=== PATIENT | female | born 1965 | race Caucasian/White ===

== ENCOUNTER 2025-01-21 21:27 | Emergency (ER) | payer OTHER, SELFPAY ==
[2025-01-21] VITALS (45 sets, daily range): BP systolic 78–117; BP diastolic 36–84; PULSE 89–180; RESP 10–26; TEMP 36.6; O2SAT 92–97; BMI 41.6
--- OUTSIDE RECORDS SUMMARY | 2025-01-21 21:30 | XMS_ITS | Clinical Summary ---
Author Organization [facility] Address [address] [place] [id number] Care Team Providers Care Watermelon Harvesting Supervisor Name Role Phone Marisela Bustamante Primary Care Provider Allergies Active Allergy Reactions Criticality Noted Date Comments Amoxicillin Rash,Edema 11/29/2007 Azithromycin Rash 09/15/2011 Rash, swollen joints Medications MULTIPLE VITAMIN ESSENTIAL ORAL TAB 1 tab daily ? 0 10/23/2003 Active CALTRATE PLUS ORAL TAB 1 tab daily ? 0 10/23/2003 Active CLARITIN 10 MG TAB take 1 tablet (10 mg) by oral route once daily 0 01/10/2008 Active famotidine (PEPCID) 20 mg tabletIndication s:Dyspepsia Take 1 Tablet (20 mg) by mouth 2 times daily. 60 Tablet 1 05/29/2021 Active Active Problems Problem Noted Date Diagnosed Date Prediabetes 12/02/2022 Hepatic steatosis 01/20/2022 Overview (01/20/2022): Abdominal ultrasound 01/20/22: Diffuse hepatic steatosis. Stable 7 millimeter hypoechoic structure left hepatic lobe Morbid exogenous obesity 07/18/2021 Liver lesion, left lobe 07/02/2021 Calculus of gallbladder with out cholecystitis without obstruction 07/02/2021 Adenomatous colon polyp 12/18/2016 Overview (03/05/2022): Colonoscopy 11/2016 polyp repeat in 5 years Colonoscopy 02/2022 3-TA, repeat in 5 years Resolved Problems Problem Noted Date Diagnosed Date Resolved Date Gall stones 09/27/2014 06/14/2018 Overview (09/27/2014): She declined further evaluation at this time. 09/27/2014 Unspecified sinusitis (chronic) 01/10/2008 01/10/2008 Pure hyperglyceridemia 04/23/200612/01 Flat foot(734) 04/23/2006 06/14/2018 fatty liver 11/18/2005 01/20/2022 Overview (11/18/2005): should discuss weight loss/lipids/check LFT's at routine physical CONTRACEPTIVE MANAGEMENT NOS 10/03/2002 04/23/2006 Obesity 08/15/1999 12/01/2018 Irregular menstrual cycle 08/15/1999 Encounters Date Type Department Care Team Description 11/14/2024 1:00 PM CDT Ancillary Procedure [facility] [address] [place] [address] 11/14/2024 Travel from Last 3 Months Immunizations Immunization Administration Dates Next Due COVID-19 vaccine (Moderna 100mcg/0.5mL) PF MDErasmo 06/28/2020,05/31/2020 Influenza, IIV3 (Age >=3 years) 01/17/2014,01/06 Influenza, IIV4 02/06/2022,,02/16/2020,2018,01/25/2018,01/28/2016 Influenza,CCIIV4 PRESERV FREE 01/29/2017 Td (Age >=7 Years) 12/01/2019,11/29/2004, 993 Tdap 08/08/2008 Zoster (Shingrix-RZV, recombinant) 10/19/2018, Family History Medical History Relation Name Comments Thyroid Disease Brother half brother Cancer Father multiple myelom a GI Disease Father polyps- benign Diabetes Maternal Grandmother Arthritis Mother ? Diabetes Mother Heart Disease Mother Lung cancer Mother Thyroid Disease Mother ? Cancer-breast Sister half sister Anesthesia Problem No Family History Blood Disease No Family History Relation Name Status Comments Brother Father Maternal Grandfather Maternal Grandmother Mother Paternal Grandfather Paternal Grandmother Sister Social History Tobacco Use Types Packs/Day Years Used Date Smoking Tobacco: Never Smokeless Tobacco: Never Tobacco Cessation:Counseling Given: Yes Alcohol Use Standard Drinks/Week Comments Yes 0 (1 standard drink = 0.6 oz pur e alcohol) rare Humiliation, Afraid, Rape, and Kick questionnair e Answer Date Recorded Within the last year, have y ou been afraid of your partner or ex-partner? No 12/01/2019 Within the last year, have y ou been humiliated or emotionally abused in other ways by your partner or ex-partner? No Within the last year, have y ou been kicked, hit, slapped, or otherwise physically hurt by your partner or ex-partner? No 12/01/2019 Within the last year, have y ou been raped or forced to have any kind of sexual activity by your partner or ex-partner? No 12/01/2019 PHQ-2 Answer Date Recorded PHQ-2 TOTAL SCORE 0 12/01/2022 [facility] - Occupational Stress Questionnaire Answer Date Recorded Do you feel stress - tense, restless, nervous, or anxious, or unable to sleep at night because your mind is troubled all the time - these days? Not at all 12/01/2019 Social Connections Answer Date Recorded Frequency of Communication with Friends and Fami ly 0 10/21/2022 Financial Resource Strain Answer Date R ecorded Difficulty of Paying Living Expenses 3 10/21/2022 Difficulty of Paying Living Expenses Not on file 10/21/2022 Food Insecurity Answer Date Recorded Worried About Running Out of Food in the Last Ye ar 1 10/21/2022 Transportation Needs Answer Date Record ed Lack of Transportation (Medical) 1 10/21/2022 Housing Stability Answer Date Recorded Unable to Pay for Housing in the Last Year 1 10/21/2022 Comments No Sex and Gender Information Value Date Recorded Sex Assigned at Not on file Legal Sex Female 5:24 AM REWORKER Gender Identity Not on file Sexual Orientation Not on file 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 file Not on file Not on bruno e Obstetrics History Para Term AB IAB SAB Ectopic Multiple Livin g Live Births 4 3 3 0 1 0 1 0 0 3 3 Date Outcome GA Total Labor Labor/2nd/3rd Weight Sex Type Anes PTL Brigitte A1 A5 Name Clin 06/18 Term F Vag Living Shaina 06/23 Term M Vag Living Abdulaziz 08/30 Term M Vag Living Jacobo Last Filed Vital Signs Vital Sign Reading Time Taken Comments Blood Pressure 138/92 12/16/2023 1:50 PM CDT tow er Pulse 108 12/16/2023 1:50 PM CDT Temperature 36.5 C (97.7 F) 10/21/2022 9:30 AM CDT Respiratory Rate 15 10/17/2020 9:36 AM CDT Oxygen Saturation 95% 12/16/2023 1:50 PM CDT Inhaled Oxygen Concentration - - Weight 117 kg (258 lb) 12/16/2023 1:50 PM CDT Height 166.4 cm (5' 5.5) 12/01/2022 2:39 PM CDT Body Mass Index 42.28 12/01/2022 2:39 PM CDT Plan of Treatment Upcoming Encounters Date Type Department Care Team (Late st Contact Info) Description 02/13/2025 3:40 PM CDT Office Visit [facility] [address] [place] [address] Jayla Armijo, [address] [place] [address] Health Maintenance Due Date Last Done Comments HIV for age 15-65 01/20/1980 Hepatitis B series for 19+ ( 1 of 3 - 19+ 3-dose series) 01/20/1984 Pneumococcal series for age 50+ (1 of 1 - PCV) 2015 BMI (ht and wt on same day) for age 18+ 12/02/2023 12/01/2022, 07/18/2021, 10/17/2020, Additional history exists Depression screening for age 12+ 12/02/2023 12/01/2022, 05/29/2021, 12/01/2019, Additional history exists Pap test for age 21-65 11/30/2024 , 12/01/2019, 06/10/2016, Additional history exists COVID-19 vaccine series ( season) 2024 03/27/2022, 03/05/2021, 06/28/2020, Additional history exists Influenza Vaccine (#1) 2024 2, 02/15/2021, 02/16/2020, Additional history exists Mammogram for age 45-75 11/14/2025 11/15/19 25, 11/11/2023, 11/05/2022, Additional history exists Colonoscopy through age 75 03/04/202703/04, 03/04/2022, 03/04/2022, Additional history exists Lipids for age 45-75 12/02/2027 12/01/2022, 12/01/2019, 06/14/2018, Additional history exists Tetanus booster 11/30/2029 12/01/2019, 07/26, 11/29/2004, Additional history exists RSV vaccine for adults or (1 - 1-dose 75+ series) 01/20/2040 Hepatitis C screening for ag e 18-79 Completed 02/27/2000 Zoster (shingles) series for age 50+ Completed 10/19/2018, 06/14/2018 Procedures Procedure Name Priority Date/Time Associated Diagnosis Comments XR MAMMO CHRISTINE BILAT SCREEN Routine 11/14/2024 1:10 PM CDT Visit for screening mammogram LIPID PANEL W REFLEX MEASURED LDL Routine 12/01/2022 3:06 PM CDT Hepatic steatosis COLONOSCOPY SCREENING Routine 03/04/2022 8:33 AM REWORKER History of colon polyps Polyp of colon, unspecified part of colon, unspecified type CANCER REGISTRY COORDINATOR THIN PREP PAP SCREEN IMAGED Routine 12/01/2019 1:32 PM CDT Pap smear for cervical cancer screening ANTI HCV Routine 02/27/2000 7:36 PM REWORKER from Last 3 Months or Most Recently Relevant to Health Maintenance Results * XR MAMMO CHRISTINE BILAT SCREEN (11/14/2024 1:10 PM CDT) Anatomical Region Laterality Modality BREASTS, Breast Left, Breast Right Bilateral Mammography Impressions 11/16/2024 11:05 AM CDT There is no radiographic evidence for malignancy. Recommend annual mammograms. MAMMOGRAM ASSESSMENT: ACR 1 Negative PATIENTS: You will also receive a letter with your examination results in an easy to read format. If you have questions about your results, please contact your referring provider. Narrative 11/16/2024 11:05 AM CDT For Patients: As a result of the Century Cures Act, medical imaging exams and procedure reports are released immediately into your electronic medical record. You may view this report before your referring provider. If you have questions, please contact your health care provider. XR MAMMO CHRISTINE BILAT SCREEN [[id number]] CLINICAL HISTORY: This is an asymptomatic 59 y.o. patient. INDICATION FOR EXAM: Mammogram Screening. TECHNIQUE: CC and MLO views were obtained. This study was evaluated with the assistance of Computer-Aided Detection. Breast Tomosynthesis was used in interpretation. COMPARISON FILM: Yes 11/11/23 [facility] 11/05/22 [employer] [facility] Medical FINDINGS: There are scattered areas of fibroglandular density. There are no dominant masses, suspicious micro calcifications or areas of architectural distortion. us Marisela Bustamante DO MAMMO Final Resul t * LIPID PANEL W REFLEX MEASURED LDL (12/01/2022 3:06 PM CDT) CHOLESTEROL,TOTAL 183 100 - 199 mg/dL 12/02/2022 1:40 AM CD[address] [facility] [employer] Comment: Cholesterol, Total Reference Ranges Desirable <200 mg/dL Borderline 200-239 mg/dL High >=240 mg/dL TRIGLYCERIDES 120 <150 mg/dL 12/02/2022 1:40 AM CD[address] [facility] HDL CHOLESTEROL 50 >40 mg/dL 1:40 AM CDT [facility] NON-HDL CHOLESTEROL 133 <145 mg/dl 12/02/2022 1:40 AM CDT [facility] CHOL/HDL RATIO 3.66 <4.50 12/02/2022 1:40 AM CDT [facility] LDL CHOLESTEROL 109 <=130 mg/dL 12/02/2022 1:40 AM CDT [facility] VLDL CHOLESTEROL 24 <=30 mg/dL 12/02/2022 1:40 AM CDT [facility] PROVIDER ORDERED STATUS RANDOM 12/02/2022 1:40 AM CDT [facility] Blood BLOOD SPECIMEN / Unknown Venipuncture / Unknown 12/01/2022 3:06 PM CDT 12/01/2022 3:06 PM CDT us Marisela Bustamante DO CHEMISTRY Final Resul t [facility] [address] [place] [address], [place] * COLONOSCOPY (03/04/2022 8:39 AM REWORKER) 03/04/2022 8:39 AM REWORKER Narrative Transcriptions Darvin Perry MD - 03/04/2022 9:42 AM CST Patient Name: Woody Brown Procedure Date: 03/04/2022 Gender: Female Date of : 1965 Admit Type: Outpatient Procedure: Colonoscopy Proceduralist: Darvin Perry MD , Shalini Garrido, RN (Nurse), Wendy Quinonez RN (Nurse) Referring MD: Marisela Bustamante Indications/Pre-Op Diagnosis: High risk colon cancer surveillance:Personal history of adenoma less than 10 mm in size, Last colonoscopy: November 2016 Medications: Fentanyl 100 micrograms IV, Midazolam 3 mgIV, The level of sedation administered wasmoderate Procedure Description: The patient had risks, benefits and alternatives explained to andgave informed consent. The patient had a stable cardiopulmonary status and judged an adequate candidate for conscious sedation. The endoscope [id number] was passed through the anus andadvanced to the cecum, identified by appendiceal orifice and ileocecal valve.The colonoscopy was performed without difficulty. The patient toleratedthe procedure well. The quality of the bowel preparation was good. The ileocecal valve, appendiceal orifice, and rectum were photographed. Complications: No immediate complications. Estimated Blood Loss & Specimen: Estimated blood loss: none. Specimen collected - Yes and sent to Laboratory Findings: The perianal and digital rectal examinations were normal. Two sessile polyps were found in the cecum. The polyps were 2 to 3 mmin size. These polyps were removed with a cold biopsy forceps. Resection and retrieval were complete. A 5 mm polyp was found in the sigmoid colon. The polyp was sessile.The polyp was removed with a hot snare. Resection and retrieval were complete. A few small-mouthed diverticula were found in the sigmoid colon. The exam was otherwise without abnormality. Impressions/Post-Op Diagnosis: - Two 2 to 3 mm polyps in the cecum, removed with a cold biopsyforceps. Resected and retrieved. - One 5 mm polyp in the sigmoid colon, removed with a hot snare. Resected and retrieved. - Diverticulosis in the sigmoid colon. - The examination was otherwise normal. Recommendation: - Patient has a contact number available for emergencies. The signsand symptoms of potential delayed complications were discussed with the patient. Return to normal activities tomorrow. Written discharge instructions were provided to the patient. - Resume previous diet. - Continue present medications. - Await pathology results. - Repeat colonoscopy is recommended. The colonoscopy date will be determined after pathology results from today's exam become available for review. Moderate Sedation: A time out was performed before the procedure. Moderate (conscious) sedation was administered by the endoscopy nurse and supervised bythe endoscopist. The following parameters were monitored: oxygensaturation, heart rate, blood pressure, EKG, CO2, respiratory rate, adequacy of pulmonary ventilation and reponse to care. Please refer to the patient's medical record flowsheets and nursing notes for moderate sedation details. Total physician intraservice time was 15 minutes. Darvin Perry MD 03/04/2022 9:42:12 AM This report has been signed electronically. Note Initiated On: 03/04/2022 8:39 AM Procedure Code(s): --- Professional --- 86811, Colonoscopy, flexible; with removalof tumor(s), polyp(s), or other lesion(s) bysnare technique 21494, 59, Colonoscopy, flexible; withbiopsy, single or multiple Diagnosis Code(s): --- Professional --- Z86.010, Personal history of colonicpolyps D12.0, Benign neoplasm of cecum D12.5, Benign neoplasm of sigmoid colon K57.30, Diverticulosis of large intestine without perforation or abscess withoutbleeding CPT copyright 2020 [employer]. All rights reserved. The codes documented in this report are preliminary and upon screen printing stencil preparer reviewmay be revised to meet current compliance requirements. Scope In: 9:19:20 AM Scope Withdrawal Time 0 hours 11 minutes 19 seconds Scope Out: 9:33:14 AM us Darvin Perry MD PROCEDURE ORD Final Res ult * CANCER REGISTRY COORDINATOR THIN PREP PAP SCREEN IMAGED (12/01/2019 1:32 PM CDT) Case Report Gynecologic Cytology Report Case: [id number] Authorizing Provider: Sasha Ziegler NP Collected: 12/01/2019 1332 Ordering Location: [facility] Received: 12/01/2019 1332 Clinic First Screen: Cyrus Mendez Specimen: CANCER REGISTRY COORDINATOR ThinPrep Vial Screening, Cervical 12/12/2019 6:59 AM CDT [facility]AL [facility]AT[facility] INTERPRETATION/ RESULT NEGATIVE FOR INTRAEPITHELIAL LESION OR MALIGNANCY (NIL) (none) 12/12/2019 6:59 AM CDT [facility]AL LAB[facility]ATORY at 0659 CDT SPECIMEN ADEQUACY Satisfactory for evaluation Endocervical component present 12/12/2019 6:59 AM CDT [facility] HPV REQUEST HPV and PAP 12/12/2019 6:59 AM CDT [facility] Date of LMP Post Normal. 12/12/2019 6:59 AM CDT [facility] Last Pap Date 06/10/16 12/12/2019 6:59 AM CDT [facility] Last Pap Result NIL 0 6:59 AM CDT [facility] Abnormal Pap or [place] Bx in last 5 years No 12/12/2019 6:59 AM CDT [facility] Menstrual Status Regular Periods 12/12/2019 6:59 AM CDT [facility] [place] Bx Done Today No 12/12/2019 6:59 AM CDT [facility] Additional Information None given 12/12/2019 6:59 AM CDT [facility] Comment: Cytology is screened at [facility] Central Laboratory - [address], [place] [address] and [facility] - [address] , [place] [address] and [facility] - [address] [place] [address] Interpreted at [facility] - [address], [place] [address] Automated Review Successful 12/12/2019 6:59 AM CDT [facility] Comment:Specimen processed s uccessfully by automated padding machine operator device, ThinPrep Imaging System, [employer] ANCILLARY TESTING CANCER REGISTRY COORDINATOR HPV Ordered, Please see separate report 12/12/2019 6:59 AM CDT [facility] Note The pap test is a screening technique, not a diagnostic procedure. It is used primarily to screen for squamous cancers and precursor lesions. Published studies have shown that it is subject to both false negative and false positive results. The pap test should not be used as the sole means to diagnose or exclude pre-malignant and malignant lesions. 12/12/2019 6:59 AM CDT [facility]-C ENTRAL LABORATORY Other (Cervical) Non-Blood / Unknown 12/01/2019 1:32 PM CDT 12/01/2019 1:32 PM CDT Sasha Ziegler NP PATHOLOGY/CYTOLOGY Final Result [facility]-C[facility]TRAL LABORATORY [address] [place] [address], * ANTI HCV (02/27/2000 7:36 PM REWORKER) ANTI HCV NON-REACTIV E NON - REACT 02/27/2000 7:36 PM REWORKER Narrative 10/05/2003 9:41 PM CDT Ordered by an unspecified provider. Other Clinical Staff SEND OUTS Final Resul t from Last 3 Months or Most Recently Relevant to Health Maintenance [place] [address] [place] [address] INDIVIDUAL AND FAMILY PLANS Advance Directives * Full Code (Latest Code Status on File) Date Activated Date Inactivated Comments 07/24/2016 9:18 AM 07/24/2016 1:53 PM * Full Code Date Activated Date Inactivated Comments 07/24/2016 12:44 AM 07/24/2016 9:18 AM * Full Code Date Activated Date Inactivated Comments 11/06/2014 11:39 AM 11/06/2014 4:40 PM * Full Code Date Activated Date Inactivated Comments 11/06/2014 2:53 AM 11/06/2014 11:39 AM Care Teams Watermelon Harvesting Supervisor Relationship Specialty Start Date End Date [place], [place] [address] [place] [address] PCP - General Family Practice 07/10/21
--- NOTE | 2025-01-21 21:49 | ED.ARRPALP ---
HPI - Arrhythmia/Palpitations General Time Seen by Provider: 21:49 Date Seen: 01/21/25 Chief Complaint: Arrhythmia/Palpitations Stated Complaint: high heartrate, nausea Time Seen by Provider: 01/21/25 21:44 Source: patient and family Mode of arrival: ambulatory Limitations: no limitations History of Present Illness HPI narrative: 60-year-old female who presents today with palpitations, nausea for about 1 hour. No chest pain, no shortness of breath. No prior history. Not anticoagulated. Related Data Home Medications ?Medication ?Instructions ?Recorded ?Confirmed lisinopril 20 mg tablet 20 mg PO DAILY blood pressure 01/21/25 01/21/25 Previous Rx's ?Medication ?Instructions ?Recorded apixaban 5 mg tablet 5 mg PO BID #60 tabs 01/21/25 metoprolol succinate 25 mg 25 mg PO DAILY #30 tabs 01/21/25 tablet,extended release 24 hr Allergies Allergy/AdvReac Type Severity Reaction Status Date / Time amoxicillin Allergy Verified 01/21/25 21:48 azithromycin (From Zithromax) Allergy Verified 01/21/25 21:48 Exam Narrative: Exam Narrative: General: Well-developed and well-nourished, no acute distress Head: Atraumatic and normocephalic Eyes: Pupils are equal reactive, extraocular motions intact, conjunctiva clear ENT: External nose and ears are normal, posterior pharynx without erythema or exudate Neck: No midline cervical tenderness, full spontaneous range of motion the neck, trachea midline, no adenopathy Heart: Heart is tachycardic and irregular Lungs: Clear to auscultation bilaterally without wheezes or crackles Abdomen: Soft, nontender, nondistended with active bowel sounds Musculoskeletal: No tenderness, deformity, or edema Neurologic: Awake, alert, and oriented x3, no gross focal neurologic deficits, cranial nerves intact as tested Psych: Mood and affect are appropriate Skin: No rashes Const: Vital Signs, click to edit/add: Vital Signs - 24 hr 01/21/25 21:41 01/21/25 21:43 01/21/25 21:43 Temperature 98 F Pulse Rate 157 H 171 H Pulse Rate [Pulse Oximeter] 180 H Respiratory Rate 17 18 26 H Blood Pressure 78/43 L Blood Pressure [Ri ght Upper Arm] 78/43 L Pulse Oximetry 95 94 94 Oxygen Delivery Me thod Room Air 01/21/25 21:47 Temperature Pulse Rate 165 H Pulse Rate [Pulse Oximeter] Respiratory Rate 20 Blood Pressure 116/74 Blood Pressure [Ri ght Upper Arm] Pulse Oximetry 94 Oxygen Delivery Me thod Course Course ED Course: Reviewed most recent primary care visit from December 01 2022 which was a routine follow-up for a physical. Patient reports history of hypertension and is on lisinopril. Patient presents today with palpitations and nausea. This started about an hour prior to coming to the emergency department. No chest pain, no shortness of breath. On exam here, patient is noted to have heart rate 151 80, initial blood pressure 78/43 although improved without intervention. EKG demonstrates atrial fibrillation with RVR, diffuse ST changes. IV fluids are ordered and will discuss with Cardiology. I did briefly discuss possibility of emergent cardioversion with patient including risks and benefits of this, will defer for now as she is stabilizing. Reevaluation(s) Time of Reevaluation #1: 21:45 Reevaluation #1: Care discussed with Dr. Rich Arik. Recommends dose of apixaban and cardioversion in 2 hours. Patient will be given metoprolol IV while waiting for rate control. Patient's blood pressure has dropped again, hold metoprolol and will proceed with urgent cardioversion. Apixaban given. Contacted anesthesia for sedation. Time of Reevaluation #2: 22:35 Reevaluation #2: Chest x-ray independently interpreted by me negative for acute findings. Time of Reevaluation #3: 22:45 Reevaluation #3: Anesthesia here to speak with patient about sedation. Due to having eaten 3 hours prior to coming emergency department, they declined to give procedural sedation, I did recommend etomidate. Discussed need for emergent cardioversion given ongoing hypotension although patient is mentating appropriately. Additional Reevaluation(s): 23:03 electrical cardioversion performed with resumption of sinus rhythm. Patient will be allowed to recover in the emergency department and will be discharged on Eliquis and metoprolol. EKG independently interpreted by me performed at 11:04 p.m. demonstrates sinus rhythm rate 93, nonspecific ST changes, no acute ischemic changes, QT prolongation at 494, [place] 154. Compared to prior, sinus rhythm has replaced atrial fibrillation with RVR. Vital Signs Vital signs: Initial Vital Signs Pulse Rate 157 H 01/21/25 21:41 Respiratory Rate 17 01/21/25 21:41 Pulse Oximetry 95 01/21/25 21:41 Vital Signs Pulse Rate 157 H 01/21/25 21:41 Respiratory Rate 17 01/21/25 21:41 Pulse Oximetry 95 01/21/25 21:41 Temperature 98 F 01/21/25 21:43 Pulse Rate 165 H 01/21/25 21:47 Respiratory Rate 20 01/21/25 21:47 Blood Pressure 116/74 01/21/25 21:47 Pulse Oximetry 94 01/21/25 21:47 Oxygen Delivery Method Room Air 01/21/25 21:43 Medications Administered Medications: Generic Name Dose Route Start Last Admin Trade Name Freq PRN Reason Stop Dose Admin Apixaban 5 mg 01/21/25 22:06 01/21/25 22:15 Apixaban 5 Mg Tablet PO 01/21/25 22:07 5 mg ONCE ONE Administration Sodium Chloride 1,000 mls @ 1,000 mls/hr 01/21/25 22:00 01/21/25 21:50 0.9 % Sodium Chloride 1000 Ml IV 01/21/25 22:59 1,000 mls/hr .Q1H RONNA Administration Discontinued Medications Generic Name Dose Route Start Last Admin Trade Name Freq PRN Reason Stop Dose Admin Metoprolol Tartrate 5 mg 01/21/25 22:06 01/21/25 22:16 Metoprolol Tartrate 1 Mg/Ml Inj IVP 01/21/25 22:07 Not Given ONCE ONE MDM - Arrhythmia/Palpitations Lab Data Labs: Lab Results 01/21/25 01/21/25 01/21/25 Range/Units 21:50 21:55 22:46 WBC 10.23 (4.50-11.00) K/uL RBC 4.92 (4.00-5.20) m/uL Hgb 14.9 (12.0-16.0) gm/dL Hct 44.4 (33.0-51.0) % MCV 90 (80-100) fL MCH 30 (26-34) pg MCHC 34 (32-36) gm/dL RDW Coeff of Monika 13.6 (11.5-15.5) % Plt Count 370 (140-440) K/uL Neut % (Auto) 67.5 (42.0-72.0) % Lymph % (Auto) 21.9 (20-44) % Dukes % (Auto) 6.8 (0.0-11.0) % Eos % (Auto) 2.7 (0.0-7.0) % Baso % (Auto) 1.0 (0.0-3.0) % Neut # (Auto) 6.90 (1.7-7.0) K/uL Lymph # (Auto) 2.24 (0.90-2.90) K/uL Dukes # (Auto) 0.70 (0.00-0.90) K/UL Eos # (Auto) 0.28 (0.00-0.50) K/uL Baso # (Auto) 0.10 (0.00-0.30) K/uL Abs Immat Gran (auto) 0.01 (0.00-0.30) K/uL Imm/Tot Granulo (auto) 0.1 % Sodium 137 (135-149) mmol/L Potassium 3.9 (3.6-5.1) mmol/L Chloride 105 (96-114) mmol/L Carbon Dioxide 21 (20-32) mmol/L Anion Gap 11 (7-15) mEq/L BUN 13 (7-30) mg/dL Creatinine 0.8 (0.5-1.5) mg/dL Estimated Creat Clear 67.29 Estimated GFR 84 ml/min Glucose 183 H (60-115) mg/dL Calcium 8.6 (8.4-10.6) mg/dL Magnesium 1.8 (1.5-2.6) mg/dL NT-Pro-B Natriuret Pep 127 (See Note) pg/mL Lab Acknowledgement Test Added POC Troponin I 0.00 L (0.01-0.04) ng/ml Critical Care Time Critical Care Time Critical Care Time: Yes (Atrial fibrillation with RVR, hypotension, emergent cardioversion) Attestation: The patient required my highest level preparedness to intervene emergently and I personally spent this critical care time directly and personally managing the patient. This critical care time included: Obtaining a history; Examining the patient; Pulse oximetry; Ordering and reviewing of studies; Arranging urgent treatment with development of a management plan; Evaluation of patients response to treatment; Frequent reassessment discussions with other providers. This critical care time was performed to assess and manage the high probability of imminent life-threatening deterioration that could result in multiorgan failure. It was exclusive of separate billable procedures and treating other patients and teaching time. Total Critical Care Time in Minutes: 45 Discharge Plan Discharge Clinical Impression: Atrial fibrillation with rapid ventricular response, Essential hypertension Patient Disposition: Home w/ Parent or Adult Instructions: A-fib (Atrial Fibrillation) (ED), Blood Thinners (ED), Cardioversion (DC), Procedural Sedation (ED) Additional Instructions: Stop lisinopril Start metoprolol and apixaban (blood thinner) Follow-up with cardiology as scheduled Activity Level: Activity as Tolerated Discharge Diet: Regular Prescriptions: New metoprolol succinate 25 mg tablet extended release 24 hr 25 mg PO DAILY Qty: 30 0RF apixaban 5 mg tablet 5 mg PO BID Qty: 60 0RF No Action lisinopril 20 mg tablet 20 mg PO DAILY Stand Alone Forms: [facility] Info Instructions, Work/School Release Procedures Additional Procedures Procedure name: Electrical cardioversion Pre procedure diagnosis: Atrial fibrillation with RVR Post procedure diagnosis: Same Written consent by: patient Site marking: not applicable Verification/time out: correct patient and correct procedure Estimated blood loss (if any): none Conclusion: patient tolerated procedure Additional comments: Electrical cardioversion for atrial fibrillation with RVR and hypotension. Discussed risks and benefits with the patient including failure to convert to sinus rhythm, conversion to other dysrhythmia, apnea, stroke. Written consent was obtained. Anesthesia contacted to provide sedation. Defibrillator pads placed anterior posterior, airway cart immediately available at bedside. After sedation, a single synchronized 100 joule shock was delivered with conversion to sinus rhythm. Patient tolerated this well. Total time 10 minutes.
--- NOTE | 2025-01-21 21:54 | CRLHL7_ITS ---
For Patients: As a result of the Century Cures Act, medical imaging exams and procedure reports are released immediately into your electronic medical record. You may view this report before your referring provider. If you have questions, please contact your health care provider. INDICATION: Palpitations. TECHNIQUE: Chest portable AP. FINDINGS: The heart is magnified by the AP technique. The lungs are essentially clear. The pulmonary vasculature and pleural surfaces appear normal. The bony thorax appears intact. IMPRESSION: Negative study. Dictated by Reinaldo Waterman MD @ 01/21/2025 10:14:52 PM (Electronically Signed)
[2025-01-21 22:03] LABS: Hematocrit* 44.4 % (33.0-51.0); Hemoglobin* 14.9 gm/dL (12.0-16.0); Immature Granulocytes Abs Auto 0.01 K/uL (0.00-0.30); Immature Granulocytes Pct Auto 0.1 %; Lymphocytes Absolute Auto 2.24 K/uL (0.90-2.90); Mean Corpuscular HGB Conc 34 gm/dL (32-36); Mean Corpuscular Hemoglobin 30 pg (26-34); Mean Corpuscular Volume 90 fL (80-100); RDW Coefficient of Variation % 13.6 % (11.5-15.5); Red Blood Count* 4.92 m/uL (4.00-5.20); White Blood Count* 10.23 K/uL (4.50-11.00)
[2025-01-21 22:06] LABS: Slide Review Reflex No
[2025-01-21] MEDS: APIXABAN 5 MG TABLET PO (22:15)
[2025-01-21 22:20] LABS: Troponin, Point-of-Care* 0.00 ng/ml (0.01-0.04)
[2025-01-21 22:21] LABS: Chloride* 105 mmol/L (96-114); Potassium* 3.9 mmol/L (3.6-5.1); Sodium* 137 mmol/L (135-149)
[2025-01-21 22:24] LABS: Anion Gap 11 mEq/L (7-15); Blood Urea Nitrogen* 13 mg/dL (7-30); Calcium* 8.6 mg/dL (8.4-10.6); Carbon Dioxide* 21 mmol/L (20-32); Creatinine* 0.8 mg/dL (0.5-1.5); Est. Creatinine Clearance* 67.29; Estimated Glomerular Filt Rate 84 ml/min; Glucose* 183 mg/dL (60-115)
[2025-01-21 22:34] LABS: NT Pro B Type NatriureticPept* 127 pg/mL (See Note)
--- NOTE | 2025-01-21 23:11 | P.ANES_ITS ---
Anesthesia Charges Start Date/Time Anesthesia Start Date: 01/21/25 Anesthesia Start Time: 22:40 Stop Date/Time Anesthesia Stop Date: 01/21/25 Anesthesia Stop Time: 23:02 Summary Emergency: NATURAL RESOURCES TECHNICIAN Coding CPT Codes CPT Codes: ANESTH CORRECT HEART RHYTHM - 58179 ([id number]) P2 - PATIENT W/MILD SYST DISEASE, QZ - NATURAL RESOURCES TECHNICIAN SVC W/O [employer] IN[employer]UMENT MECHANIC BY Additional Codes: Summary - Emergency: NATURAL RESOURCES TECHNICIAN ([id number])
--- NOTE | 2025-01-21 23:11 | W.ANESCHARGE ---
Anesthesia Charges Start Date/Time Anesthesia Start Date: 01/21/25 Anesthesia Start Time: 22:40 Stop Date/Time Anesthesia Stop Date: 01/21/25 Anesthesia Stop Time: 23:02 Summary Emergency: RANCH HELPER Coding CPT Codes CPT Codes: ANESTH CORRECT HEART RHYTHM - 02567 ([id number]) P2 - PATIENT W/MILD SYST DISEASE, QZ - RANCH HELPER SVC W/O [employer] BY Additional Codes: Summary - Emergency: RANCH HELPER ([id number])
[2025-01-22] MEDS: METOPROLOL SUCCINATE (XL) 25 MG TAB PO (00:09)
== END 2025-01-22 00:40 | disposition home or self-care (01) ==
LOC: ED 23:34
PROVIDERS: Emergency Provider Family Medicine; PCP Family Medicine
DX: I49.1 Atrial premature depolarization (principal); I95.9 Hypotension, unspecified; I10 Essential (primary) hypertension; Z79.899 Other long term (current) drug therapy
CPT/HCPCS: 92960; 00410; 36415; 71045; 80048; 83735; 83880; 84443; 84484; 85025; 93005; 99140; 99285; 99291; A9270; J7030